=== PATIENT | male | born 1980 | race Caucasian/White ===

== ENCOUNTER 2018-03-26 10:05 | Inpatient (IN) | payer MEDICAID, OTHER ==
[~2018-03-26] VITALS: Ht 175.3 cm; Wt 85.6 kg
[2018-03-26] MEDS ORDERED: SODIUM CHLORIDE FLUSH 10ML SYR IVF ONE (11:00)
[2018-03-26 11:31] LABS: MEAN CORPUSCULAR HEMOGLOBIN 32.5 pg (27.5-34.5); MEAN CORPUSCULAR HGB CONC 33.4 g/dL (33.2-36.2); MEAN CORPUSCULAR VOLUME 97.4 fL (81-97); MEAN PLATELET VOLUME 7.9 fL (7.4-10.4); PLATELET COUNT 261 x10^3/uL (130-400); RED BLOOD COUNT 5.11 x10^6/uL (4.38-5.82); RED CELL DISTRIBUTION WIDTH 13.5 % (9.4-14.8)
[2018-03-26 11:39] LABS: ALBUMIN 3.8 g/dL (3.4-5.0); ANION GAP 12 mmol/L (5-15); CALCIUM 9.6 mg/dL (8.5-10.1); CHLORIDE 105 mmol/L (98-107); CREATININE 1.19 mg/dL (0.7-1.3)
[2018-03-26] MEDS ORDERED: ARIP20TA5 PO (12:31)
[2018-03-26] MEDS ORDERED: AMPH30TA2 PO (12:31)
[2018-03-26 12:32] LABS: MD YES
[2018-03-26 12:36] LABS: BAND#(MANUAL) 2.59 x10^3/uL; BANDS%(MANUAL) 10 % (0-7); BASOS#(MANUAL) 0.52 x10^3/uL (0-0.1); BASOS% (MANUAL) 2 % (0-1); LYMPH#(MANUAL) 2.07 x10^3/uL (1-3.4); LYMPHS% (MANUAL) 8 % (22-44); METAMYELOCYTES# (MANUAL) 0.52 x10^3/uL (0-0); METAMYELOCYTES% (MANUAL) 2 % (0-1); MONOS#(MANUAL) 0.52 x10^3/uL (0.3-2.7); MONOS% (MANUAL) 2 % (2-9); SEG#(MANUAL) 19.68 x10^3/uL (1.8-6.8); SEGS% (MANUAL) 76 % (42-75)
[2018-03-26 12:37] LABS: <PLATELET ESTIMATE> ADEQUATE; <PLT MORPHOLOGY> NORMAL PLT MORPH; <RBC MORPHOLOGY> NORMAL; TOXIC GRAN 2+
[2018-03-26] MEDS ORDERED: PIPERACILLIN/TAZO/PMX 3.375GM 50 ML ONE (12:48)
[2018-03-26] MEDS ORDERED: HYDROmorphone 2 MG/ML, 1ML ONE (12:48)
[2018-03-26] MEDS ORDERED: ONDANSETRON 2MG/ML, 2ML ONE (12:48)
[2018-03-26] MEDS ORDERED: HYDROmorphone 1 MG/ML, 1ML IVPush PRN (13:00)
[2018-03-26] MEDS ORDERED: VANCOMYCIN PER PHARMACY IV ONE (13:00)
[2018-03-26] MEDS ORDERED: VANCOMYCIN 1,700 MG in SODIUM CHLORIDE 0.9% 250 ML IV ONE (13:00)
[2018-03-26] MEDS ORDERED: PIPERACILLIN/TAZO/PMX 3.375GM 50 ML IVPB ONE (13:00)
[2018-03-26] MEDS ORDERED: ONDANSETRON 2MG/ML, 2ML IVPush ONE (13:30)
[2018-03-26] MEDS ORDERED: OMNIPAQUE 350 MG/ML, 100ML BOTTLE ONE (13:39)
[2018-03-26] MEDS ORDERED: SODIUM CHLORIDE 0.9% 1,000 ML IV SCH (16:06)
[2018-03-26] MEDS ORDERED: PHARMACY MAY ADJ FOR RENAL FX MC SCH (16:30)
[2018-03-26] MEDS ORDERED: BISACODYL 10 MG SUPP PR PRN (16:30)
[2018-03-26] MEDS ORDERED: DOCUSATE 100 MG CAPSULE PO PRN (16:30)
[2018-03-26] MEDS ORDERED: ONDANSETRON 2MG/ML, 2ML IV PRN (16:30)
[2018-03-26] MEDS ORDERED: ONDANSETRON ODT 4 MG PO PRN (16:30)
[2018-03-26] MEDS ORDERED: VANCOMYCIN PER PHARMACY MC SCH (16:30)
[2018-03-26] MEDS ORDERED: PHARMACOKINETIC MONITORING MC PRN (17:00)
[2018-03-26] MEDS ORDERED: PHARMACOKINETIC CONSULTATION MC ONE (17:00)
[2018-03-26] MEDS ORDERED: VANCOMYCIN 1,500 MG in SODIUM CHLORIDE 0.9% 250 ML IV SCH (17:00)
[2018-03-26] MEDS: PIPERACILLIN/TAZO/PMX 4.5GM 100 ML IVPB SCH (17:57)
[2018-03-26] MEDS: HYDROcodone/APAP 5/325 TABLET PO PRN (17:57)
[2018-03-26] MEDS: ENOXAPARIN 40 MG/0.4 ML SQ SCH (18:19)
[2018-03-26 19:09] VITALS: BP 101/66
[2018-03-26 19:18] VITALS: BP 103/63
[2018-03-26] MEDS: SODIUM CHLORIDE 0.9% 1,000 ML IV SCH (20:14)
[2018-03-27] MEDS: PIPERACILLIN/TAZO/PMX 4.5GM 100 ML IVPB SCH ×4 (00:31→18:13)
[2018-03-27 00:53] VITALS: BP 118/79
[2018-03-27 00:58] LABS: MICROSCOPIC NOT IND
[2018-03-27] MEDS: ZOLPIDEM 5MG TABLET PO PRN ×2 (03:05→23:07)
[2018-03-27] MEDS: SODIUM CHLORIDE 0.9% 1,000 ML IV SCH ×2 (06:00→20:54)
[2018-03-27 06:52] VITALS: BP 110/69
[2018-03-27] MEDS: VANCOMYCIN 1,500 MG in SODIUM CHLORIDE 0.9% 250 ML IV SCH ×2 (09:04→20:54)
[2018-03-27] MEDS: ACETAMINOPHEN 325 MG TABLET PO PRN (09:41)
[2018-03-27 12:45] LABS: MEAN CORPUSCULAR HEMOGLOBIN 33.6 pg (27.5-34.5); MEAN CORPUSCULAR HGB CONC 34.5 g/dL (33.2-36.2); MEAN CORPUSCULAR VOLUME 97.3 fL (81-97); MEAN PLATELET VOLUME 8.2 fL (7.4-10.4); PLATELET COUNT 219 x10^3/uL (130-400); RED BLOOD COUNT 4.19 x10^6/uL (4.38-5.82); RED CELL DISTRIBUTION WIDTH 13.1 % (9.4-14.8)
[2018-03-27 13:26] LABS: BASOPHILS # (AUTO) 0.06 x10^3/uL (0-0.1); BASOPHILS % (AUTO) 1 % (0-1); EOSINOPHILS # (AUTO) 0.44 x10^3/uL (0-0.4); EOSINOPHILS % (AUTO) 4 % (1-7); LYMPHOCYTES # (AUTO) 2.79 x10^3/uL (1-3.4); LYMPHOCYTES % (AUTO) 22 % (22-44); MD SCAN; MONOCYTES # (AUTO) 0.95 x10^3/uL (0.2-0.8); MONOCYTES % (AUTO) 8 % (2-9); NEUTROPHILS # (AUTO) 8.48 x10^3/uL (1.8-6.8); NEUTROPHILS % (AUTO) 67 % (42-75)
[2018-03-27 14:18] VITALS: BP 116/80
[2018-03-27] MEDS: ENOXAPARIN 40 MG/0.4 ML SQ SCH (16:05)
[2018-03-27] MEDS: HYDROcodone/APAP 5/325 TABLET PO PRN ×2 (16:20→23:07)
[2018-03-27 19:10] VITALS: BP 118/74
[2018-03-28] MEDS: PIPERACILLIN/TAZO/PMX 4.5GM 100 ML IVPB SCH ×4 (00:05→19:45)
[2018-03-28 00:41] VITALS: BP 153/75
[2018-03-28 06:17] LABS: CHLORIDE 115 mmol/L (98-107)
[2018-03-28 06:36] LABS: ANION GAP 8 mmol/L (5-15); CALCIUM 8.8 mg/dL (8.5-10.1)
[2018-03-28 08:04] VITALS: BP 125/70
[2018-03-28] MEDS: VANCOMYCIN 1,500 MG in SODIUM CHLORIDE 0.9% 250 ML IV SCH (09:03)
[2018-03-28] MEDS: ACETAMINOPHEN 325 MG TABLET PO PRN (09:14)
[2018-03-28] MEDS: SODIUM CHLORIDE 0.9% 1,000 ML IV SCH ×3 (13:00→23:33)
[2018-03-28] MEDS: HYDROcodone/APAP 5/325 TABLET PO PRN (13:59)
[2018-03-28 15:46] VITALS: BP 119/65
[2018-03-28] MEDS: ENOXAPARIN 40 MG/0.4 ML SQ SCH (16:30)
[2018-03-28 18:35] VITALS: BP 111/62
[2018-03-29] MEDS: PIPERACILLIN/TAZO/PMX 4.5GM 100 ML IVPB SCH ×2 (00:45→07:56)
[2018-03-29 00:48] VITALS: BP 118/78
[2018-03-29] MEDS: HYDROcodone/APAP 5/325 TABLET PO PRN ×3 (00:51→16:28)
[2018-03-29 05:24] LABS: BASOPHILS % (AUTO) 1 % (0-1); EOSINOPHILS # (AUTO) 0.54 x10^3/uL (0-0.4); EOSINOPHILS % (AUTO) 5 % (1-7); LYMPHOCYTES % (AUTO) 23 % (22-44); MD NO; MEAN CORPUSCULAR HEMOGLOBIN 33.5 pg (27.5-34.5); MEAN CORPUSCULAR HGB CONC 34.3 g/dL (33.2-36.2); MEAN CORPUSCULAR VOLUME 97.9 fL (81-97); MEAN PLATELET VOLUME 8.2 fL (7.4-10.4); MONOCYTES # (AUTO) 1.06 x10^3/uL (0.2-0.8); MONOCYTES % (AUTO) 10 % (2-9); NEUTROPHILS # (AUTO) 6.75 x10^3/uL (1.8-6.8); NEUTROPHILS % (AUTO) 62 % (42-75); PLATELET COUNT 243 x10^3/uL (130-400); RED BLOOD COUNT 4.29 x10^6/uL (4.38-5.82); RED CELL DISTRIBUTION WIDTH 13.1 % (9.4-14.8)
[2018-03-29 05:35] LABS: ANION GAP 6 mmol/L (5-15); CALCIUM 8.7 mg/dL (8.5-10.1); CHLORIDE 114 mmol/L (98-107)
[2018-03-29 05:52] LABS: VANCOMYCIN,RANDOM 12.4 mcg/mL
[2018-03-29 07:09] VITALS: BP 128/87
[2018-03-29] MEDS: SODIUM CHLORIDE 0.9% 1,000 ML IV SCH (09:09)
[2018-03-29] MEDS ORDERED: VANCOMYCIN 1,600 MG in SODIUM CHLORIDE 0.9% 250 ML IV ONE (09:30)
[2018-03-29 12:43] VITALS: BP 129/76
[2018-03-29 13:08] LABS: ANION GAP 7 mmol/L (5-15); CALCIUM 8.5 mg/dL (8.5-10.1); CHLORIDE 113 mmol/L (98-107)
[2018-03-29 13:12] LABS: CREATINE KINASE, TOTAL 41 U/L (39-308); CREATININE 1.43 mg/dL (0.7-1.3)
[2018-03-29] MEDS: ERTAPENEM 0.5 GM in SODIUM CHLORIDE 0.9% 50 ML IV SCH (13:38)
[2018-03-29] MEDS: LACTATED RINGERS 1,000 ML IV SCH (16:23)
[2018-03-29] MEDS: ENOXAPARIN 40 MG/0.4 ML SQ SCH (16:28)
[2018-03-29 17:23] LABS: CHLORIDE,URINE RANDOM 93 mmol/L; POTASSIUM,URINE RANDOM 12 mmol/L; SODIUM,URINE RANDOM 94 mmol/L
[2018-03-29 19:13] VITALS: BP 141/82
[2018-03-30] MEDS: HYDROcodone/APAP 5/325 TABLET PO PRN ×2 (00:12→07:43)
[2018-03-30 01:00] VITALS: BP 128/77
[2018-03-30] MEDS: LACTATED RINGERS 1,000 ML IV SCH ×2 (05:09→15:06)
[2018-03-30 05:39] LABS: BASOPHILS # (AUTO) 0.08 x10^3/uL (0-0.1); BASOPHILS % (AUTO) 1 % (0-1); EOSINOPHILS # (AUTO) 0.55 x10^3/uL (0-0.4); EOSINOPHILS % (AUTO) 5 % (1-7); LYMPHOCYTES # (AUTO) 2.51 x10^3/uL (1-3.4); LYMPHOCYTES % (AUTO) 22 % (22-44); MD NO; MEAN CORPUSCULAR HGB CONC 33.8 g/dL (33.2-36.2); MEAN CORPUSCULAR VOLUME 97.7 fL (81-97); MEAN PLATELET VOLUME 8.2 fL (7.4-10.4); MONOCYTES # (AUTO) 1.05 x10^3/uL (0.2-0.8); MONOCYTES % (AUTO) 9 % (2-9); NEUTROPHILS # (AUTO) 7.18 x10^3/uL (1.8-6.8); NEUTROPHILS % (AUTO) 63 % (42-75); PLATELET COUNT 280 x10^3/uL (130-400); RED BLOOD COUNT 4.43 x10^6/uL (4.38-5.82); RED CELL DISTRIBUTION WIDTH 12.8 % (9.4-14.8)
[2018-03-30 06:54] VITALS: BP 138/76
[2018-03-30 12:36] VITALS: BP 140/82
[2018-03-30] MEDS: ERTAPENEM 0.5 GM in SODIUM CHLORIDE 0.9% 50 ML IV SCH (13:29)
[2018-03-30] MEDS: ENOXAPARIN 40 MG/0.4 ML SQ SCH (16:43)
[2018-03-30 19:30] VITALS: BP 130/83
[2018-03-30] MEDS: AMOXICILLIN/CLAV 875-125MG TABLET PO SCH (20:26)
[2018-03-30] MEDS: DOXYCYCLINE 100MG CAP PO SCH (20:26)
[2018-03-31] MEDS: LACTATED RINGERS 1,000 ML IV SCH ×2 (01:12→11:00)
[2018-03-31 02:00] VITALS: BP 123/82
[2018-03-31 05:17] LABS: BASOPHILS # (AUTO) 0.06 x10^3/uL (0-0.1); BASOPHILS % (AUTO) 1 % (0-1); EOSINOPHILS # (AUTO) 0.71 x10^3/uL (0-0.4); EOSINOPHILS % (AUTO) 7 % (1-7); LYMPHOCYTES % (AUTO) 22 % (22-44); MD NO; MEAN CORPUSCULAR HEMOGLOBIN 33.2 pg (27.5-34.5); MEAN CORPUSCULAR HGB CONC 33.6 g/dL (33.2-36.2); MEAN CORPUSCULAR VOLUME 98.7 fL (81-97); MEAN PLATELET VOLUME 8.1 fL (7.4-10.4); MONOCYTES % (AUTO) 8 % (2-9); NEUTROPHILS # (AUTO) 6.78 x10^3/uL (1.8-6.8); NEUTROPHILS % (AUTO) 63 % (42-75); PLATELET COUNT 298 x10^3/uL (130-400); RED BLOOD COUNT 4.78 x10^6/uL (4.38-5.82); RED CELL DISTRIBUTION WIDTH 12.9 % (9.4-14.8)
[2018-03-31 05:27] LABS: ALBUMIN 3.2 g/dL (3.4-5.0); ANION GAP 8 mmol/L (5-15); CALCIUM 9.7 mg/dL (8.5-10.1); CHLORIDE 109 mmol/L (98-107); CREATININE 1.35 mg/dL (0.7-1.3)
[2018-03-31 07:16] VITALS: BP 144/79
[2018-03-31] MEDS: DOXYCYCLINE 100MG CAP PO SCH (09:09)
[2018-03-31] MEDS: AMOXICILLIN/CLAV 875-125MG TABLET PO SCH (09:09)
[2018-03-31] MEDS ORDERED: AMOX1TAB12 PO (10:31)
[2018-03-31] MEDS ORDERED: DOXY100C2 PO (10:31)
[2018-03-31] MEDS ORDERED: ACET325T14 PO (10:31)
== END 2018-03-31 12:22 | disposition home or self-care (01) | DRG 871 ==
LOC: ED 13:00 → EDIP 13:34 → 3NE 14:11 → DCLOUNGE 03-31 12:03
PROVIDERS: ADMIT Hospitalist; ATTEND Hospitalist
DX: A41.9 Sepsis, unspecified organism (principal); N17.0 Acute kidney failure with tubular necrosis; L03.114 Cellulitis of left upper limb; E87.6 Hypokalemia; F17.200 Nicotine dependence, unspecified, uncomplicated; I10 Essential (primary) hypertension; I80.8 Phlebitis and thrombophlebitis of other sites; N14.1 Nephropathy induced by other drugs, medicaments and biological substances; T50.8X5A Adverse effect of diagnostic agents, initial encounter
CPT/HCPCS: 36415; 71045; 74018; 76770; 78582; 80048; 80069; 80202; 81003; 82040; 82436; 82550; 82570; 83605; 84133; 84300; 85025; 85651; 86140; 87040; 87086; 87205; 93970; 96365; 96375; G0378; J1170; J1335; J1650; J2405; J2543; J3370; Q9967; A9540; A9558; C9898; J7030; J7050; J7120

== ENCOUNTER 2018-10-10 17:40 | Emergency (ER) | payer OTHER ==
[~2018-10-10] VITALS: Ht 172.7 cm; Wt 90.2 kg
[~2018-10-10 17:40] MED LIST: ACET325T14 PO; AMOX1TAB12 PO; AMPH30TA2 PO; ARIP20TA5 PO; DOXY100C2 PO
[2018-10-10 17:49] VITALS: BP 131/78
[2018-10-10] MEDS ORDERED: LIDOCAINE-MPF 1%, 5ML ONE (17:58)
[2018-10-10] MEDS ORDERED: L.E.T SOLUTION TP ONE ×2 (17:59→18:00)
[2018-10-10] MEDS ORDERED: LIDOCAINE-MPF 1%, 5ML INFIL ONE (18:00)
[2018-10-10] MEDS ORDERED: DIPH,PERTUSS(ACELL),TET VAC/PF 0.5 ML IM-VACC ONE (18:00)
--- NOTE | 2018-10-10 18:20 | NUR ---
LEFT 4TH NAIL TRAUMA
[2018-10-10] MEDS ORDERED: ONDANSETRON ODT 4 MG ONE (18:43)
[2018-10-10] MEDS ORDERED: HYDROcodone/APAP 5/325 TABLET ONE (18:43)
[2018-10-10] MEDS ORDERED: HYDROcodone/APAP 5/325 TABLET PO ONE (19:00)
[2018-10-10] MEDS ORDERED: ONDANSETRON ODT 4 MG PO ONE (19:00)
== END 2018-10-10 18:52 | disposition home or self-care (01) ==
LOC: ED 18:00
DX: S61.305A Unspecified open wound of left ring finger with damage to nail, initial encounter (principal); X58.XXXA Exposure to other specified factors, initial encounter; Y93.89 Activity, other specified; Y92.89 Other specified places as the place of occurrence of the external cause; Y99.8 Other external cause status
CPT/HCPCS: 11730; 73130; 90471; 90715; 99284; Q0162

== ENCOUNTER 2020-10-19 02:54 | Emergency (ER) | payer MEDICAID, OTHER ==
[~2020-10-19] VITALS: Ht 175.3 cm; Wt 74.3 kg
[2020-10-19 03:04] VITALS: BP 133/88
[2020-10-19] MEDS ORDERED: ONDANSETRON 2MG/ML, 2ML ONE (03:14)
[2020-10-19] MEDS ORDERED: MORPHINE SULFATE 4 MG/ML, 1ML ONE (03:14)
[2020-10-19] MEDS ORDERED: ONDANSETRON 2MG/ML, 2ML IVPush ONE (03:30)
[2020-10-19] MEDS ORDERED: MORPHINE SULFATE 4 MG/ML, 1ML IVPush PRN (03:30)
--- NOTE | 2020-10-19 03:33 | NUR ---
pt came into ed this evening due to left sided chest pain after a fall on that side a few days back and some left upper quadrant pain starting after the fall as well. pt came in tonight due to increasing pain and discomfort. pt resting on gurney, nad, bed in lowest, rails engaged, wctm. pt medicated per jun.
[2020-10-19 04:01] LABS: ALBUMIN 3.8 g/dL (3.4-5.0); ANION GAP 5 mmol/L (5-15); CALCIUM 9.3 mg/dL (8.5-10.1); CHLORIDE 104 mmol/L (98-107)
[2020-10-19 04:02] LABS: CREATININE 0.69 mg/dL (0.7-1.3)
--- NOTE | 2020-10-19 04:23 | NUR ---
pt wheeled via [place] to [place] at this time. nad, pain decreased, reports hes is much more comfortable, no other changes in condition. wctm.
[2020-10-19] MEDS ORDERED: OMNIPAQUE 350 MG/ML, 100ML BOTTLE ONE (04:29)
--- NOTE | 2020-10-19 05:59 | NUR ---
Patient/Caregiver given discharge instructions and they have confirmed that they understand the instructions. Patient ambulatory with steady gait. NAD, all questions answered appropriately, denies additional needs at this time. No personal belongings left in room after discharge.
== END 2020-10-19 06:04 | disposition home or self-care (01) ==
LOC: ED 05:59
DX: S29.011A Strain of muscle and tendon of front wall of thorax, initial encounter (principal); S20.212A Contusion of left front wall of thorax, initial encounter; R10.12 Left upper quadrant pain; F17.200 Nicotine dependence, unspecified, uncomplicated; W18.30XA Fall on same level, unspecified, initial encounter; Y93.89 Activity, other specified; Y92.828 Other wilderness area as the place of occurrence of the external cause; Y99.8 Other external cause status
CPT/HCPCS: 36415; 71101; 74177; 80048; 82040; 96374; 96375; 99285; J2270; J2405; Q9967